=== PATIENT | male | born 1980 | race Caucasian/White ===

== ENCOUNTER 2021-01-19 08:12 | Emergency (ER) | payer BC ==
[~2021-01-19] VITALS: Ht 188 cm; Wt 83.9 kg
[2021-01-19 08:12] VITALS: BP_SYST 145
[2021-01-19] MEDS ORDERED: LORazepam 1 MG TABLET PO ONE (08:30)
[2021-01-19 08:55] LABS: BASOPHILS % (AUTO) 0.3 % (0.0-2.0); EOSINOPHILS % (AUTO) 0.3 % (0.0-4.0); HEMATOCRIT 43.3 % (36-54); LYMPHOCYTES # (AUTO) 1.3 K/uL (1.0-5.5); LYMPHOCYTES % (AUTO) 16.2 % (20.5-51.5); MEAN CORPUSCULAR HEMOGLOBIN 30 pg (27-31); MEAN CORPUSCULAR HGB CONC 35 % (32-36); MEAN CORPUSCULAR VOLUME 87 fL (79.0-98.0); MONOCYTES # (AUTO) 0.7 K/uL (0.0-1.0); MONOCYTES % (AUTO) 8.9 % (1.7-9.3); NEUTROPHILS # (AUTO) 5.8 K/uL (1.8-7.7); NEUTROPHILS % (AUTO) 74.3 % (40.0-70.0); PLATELET COUNT (AUTO) 201 K/uL (130-430); RED BLOOD CELL COUNT(AUTO) 4.99 MIL/uL (4.2-6.2); RED CELL DISTRIBUTION WIDTH 12.9 % (9.0-15.0); WHITE BLOOD COUNT (AUTO) 7.8 K/uL (4.8-10.8)
[2021-01-19 08:59] LABS: ANION GAP 6 (5-15); CALCIUM 9.2 mg/dL (8.4-11.0); CHLORIDE 100 mmol/L (98-107); CREATININE 1.07 mg/dL (0.55-1.30); GLUCOSE 98 mg/dL (70-99); POTASSIUM 3.9 mmol/L (3.5-5.1); SODIUM SERUM 135 mmol/L (136-145); UREA NITROGEN, BLOOD 20 mg/dL (8-21)
[2021-01-19 09:01] LABS: GFR AFRICAN AMERICAN 99 mL/min (>90)
[2021-01-19 09:08] LABS: ALANINE AMINOTRANSFERASE 30 U/L (12-78); ALBUMIN 4.2 g/dL (3.4-4.8); ASPARTATE AMINOTRANSFERASE 19 U/L (10-37); LIPASE 82 U/L (73-393); TOTAL BILIRUBIN 1.2 mg/dL (0.0-1.0)
[2021-01-19] MEDS ORDERED: LORA-258 PO (09:35)
[2021-01-19] MEDS ORDERED: NAPR-1172 PO (09:35)
[2021-01-19 09:54] VITALS: BP_SYST 120
== END 2021-01-19 09:55 | disposition home or self-care (01) ==
LOC: SED 08:12
DX: R07.89 Other chest pain (principal); Z79.899 Other long term (current) drug therapy
CPT/HCPCS: 36415; 71046-TC; 80053; 83690; 84484; 85025; 93005; 99285

== ENCOUNTER 2023-03-01 23:04 | Emergency (ER) | payer BC ==
[~2023-03-01] VITALS: Ht 188 cm; Wt 83.9 kg
[~2023-03-01 23:04] MED LIST: LORA-258 PO; NAPR-1172 PO
[2023-03-02 00:21] VITALS: BP_SYST 130; PULSE 64; RESP 18; TEMP 98.3; O2SAT 99
[2023-03-02] MEDS ORDERED: IBUP-1969 PO (00:26)
== END 2023-03-02 00:36 | disposition home or self-care (01) ==
LOC: SED 23:04
DX: S20.211A Contusion of right front wall of thorax, initial encounter (principal); Z79.899 Other long term (current) drug therapy; W22.8XXA Striking against or struck by other objects, initial encounter; Y93.89 Activity, other specified; Y92.89 Other specified places as the place of occurrence of the external cause; Y99.8 Other external cause status
CPT/HCPCS: 71045; 71100; 99284